=== PATIENT | female | born 1970 | race American Indian/Alaskan Native ===

== ENCOUNTER 2020-09-11 20:50 | Emergency (ER) | payer OTHER ==
[2020-09-11 21:21] VITALS: BP 198/102
[2020-09-11] MEDS ORDERED: ACETAMINOPHEN 500 MG TAB PO ONE (22:31)
--- NOTE | 2020-09-11 22:31 | Emergency Department Report ---
ED Abdominal Pain HPI - General Chief Complaint: Urogenital-Female Stated Complaint: TEST Time Seen by Provider: 09/11/20 22:18 Source: patient Mode of arrival: Ambulatory Limitations: No Limitations - History of Present Illness MD Complaint: abdominal pain - Related Data Allergies Allergy/AdvReac Type Severity Reaction Status Date / Time No Known Allergies Allergy Unverified 09/11/20 21:14 ED Review of Systems ROS: Stated complaint: TEST Other details as noted in HPI ED Past Medical Hx - Past Medical History Previous Medical History?: No - Surgical History Past Surgical History?: No - Social History Smoking Status: Never Smoker Substance Use Type: None ED Physical Exam - General Limitations: No Limitations ED Course Vital Signs 09/11/20 21:14 Temperature 98.2 F Pulse Rate 72 Respiratory 16 Rate Blood Pressure 198/102 O2 Sat by Pulse 98 Oximetry Critical care attestation.: If time is entered above; I have spent that time in minutes in the direct care of this critically ill patient, excluding procedure time. ED Disposition Condition: Stable
--- NOTE | 2020-09-11 22:43 | Emergency Department Report ---
ED Female HPI - General Chief complaint: Urogenital-Female Stated complaint: TEST Time Seen by Provider: 09/11/20 22:18 Source: patient Mode of arrival: Ambulatory Limitations: No Limitations - History of Present Illness Initial comments: 50-year-old female presents to the ER today requesting a test and ultrasound. Patient states that she started having movement in her abdomen since September 02. She is concerned that she may be as she is sexually active and engaged in unprotected sexual intercourse. She states that her last menstrual cycle was March 11, 2020. She has not taken any home test. She states that she is also been nauseous intermittently for past few months. She reports no associated abdominal pain or any abnormal vaginal bleeding or any abnormal vaginal discharge or any other symptoms at this time. Complaint: other (Wants preg test) - Related Data Allergies Allergy/AdvReac Type Severity Reaction Status Date / Time No Known Allergies Allergy Unverified 09/11/20 21:14 ED Review of Systems ROS: Stated complaint: TEST Other details as noted in HPI Comment: All other systems reviewed and negative Constitutional: denies: chills, fever Eyes: denies: eye pain, eye discharge, vision change ENT: denies: ear pain, throat pain Respiratory: denies: cough, shortness of breath, wheezing Gastrointestinal: denies: abdominal pain, nausea, diarrhea Genitourinary: denies: urgency, dysuria, discharge Neurological: denies: headache, weakness, paresthesias Psychiatric: denies: anxiety, depression ED Past Medical Hx - Past Medical History Previous Medical History?: No - Surgical History Past Surgical History?: No - Social History Smoking Status: Never Smoker Substance Use Type: None ED Physical Exam - General Limitations: No Limitations General appearance: alert, in no apparent distress - Respiratory Respiratory exam: Absent: respiratory distress - Cardiovascular Cardiovascular Exam: Present: regular rate - GI/Abdominal GI/Abdominal exam: Present: soft. Absent: distended, tenderness - Back Exam Back exam: Present: normal inspection, full ROM - Neurological Exam Neurological exam: Present: alert, oriented X3, CN II-XII intact, normal gait - Psychiatric Psychiatric exam: Present: normal mood ED Course Vital Signs 09/11/20 21:14 Temperature 98.2 F Pulse Rate 72 Respiratory 16 Rate Blood Pressure 198/102 O2 Sat by Pulse 98 Oximetry ED Medical Decision Making - Medical Decision Making 50-year-old female presents to the ER today requesting a test and ultrasound. Patient states that she started having movement in her abdomen since September 02. She is concerned that she may be as she is sexually active and engaged in unprotected sexual intercourse. She states that her last menstrual cycle was March 11, 2020. She has not taken any home test. She states that she is also been nauseous intermittently for past few months. She reports no associated abdominal pain or any abnormal vaginal bleeding or any abnormal vaginal discharge or any other symptoms at this time. 1249: Urinalysis unremarkable. Urine hCG negative. Discussed results with patient. She is well-appearing, nontoxic, is not in any acute distress and has a soft nontender abdomen. She is neurologically intact. No indication for any further work-ups at this time. Recommend that patient follow-up with her [facility]. Patient stable at time of discharge. Critical care attestation.: If time is entered above; I have spent that time in minutes in the direct care of this critically ill patient, excluding procedure time. ED Disposition Clinical Impression: Amenorrhea Disposition: DC-01 TO HOME OR SELFCARE Is pt being admited?: No Does the pt Need Aspirin: No Condition: Stable Instructions: Secondary Amenorrhea Additional Instructions: Follow up with OBGYN. REturn to ED if your symptoms changes or worsens. Referrals: SARAI MORA MD [Primary Care Provider] - 3-5 Days Time of Disposition: 00:47
[2020-09-12 00:09] LABS: Bilirubin,Urine NEG (Negative); Blood,Urine NEG (Negative); Color,Urine Straw (Yellow); Protein,Urine <15 mg/dL mg/dL (Negative); RBC,Urine < 1.0 /HPF (0.0-6.0); Urobilinogen,Urine < 2.0 mg/dL (<2.0)
[2020-09-12 00:16] LABS: HCG Qualitative,Urine Negative (Negative)
== END 2020-09-12 01:00 | disposition home or self-care (01) ==
LOC: ED 20:50
DX: N91.2 Amenorrhea, unspecified (principal)
CPT/HCPCS: 81001; 81025